=== PATIENT | female | born 1990 | race African-American/Black ===

== ENCOUNTER 2024-05-18 12:08 | Emergency (ER) | payer SELFPAY ==
[~2024-05-18] VITALS: Ht 162.6 cm; Wt 100.0 kg
[2024-05-18 12:44] LABS: CHLORIDE 113 mEq/L (98-107); POTASSIUM 3.6 mEq/L (3.5-5.1); SODIUM 141 mEq/L (136-145)
[2024-05-18 12:45] LABS: CALCIUM 8.7 mg/dL (8.7-10.4); CARBON DIOXIDE 24 mEq/L (21-32)
[2024-05-18] MEDS: LORAZEPAM 2MG/ML INJ IM STA (12:45)
[2024-05-18] MEDS: HALOPERIDOL LACTATE 5MG/ML VIAL IM STA (12:45)
[2024-05-18] MEDS: DIPHENHYDRAMINE 50MG/ML VIAL IM STA (12:45)
[2024-05-18 12:50] LABS: CREATININE 0.7 mg/dL (0.6-1.0); GLUCOSE 87 mg/dL (70-105); UREA NITROGEN BLOOD 9 mg/dL (9-23)
[2024-05-18 12:52] LABS: ACETAMINOPHEN < 2 ug/mL (10-30)
[2024-05-18 12:53] LABS: BASOPHILS % 0.8 % (0.0-2.0); HEMATOCRIT. 34.9 % (36.0-48.0); HEMOGLOBIN. 11.4 g/dL (12.0-16.0); LYMPHOCYTES % 39.2 % (20.0-50.0); MEAN CORPUSCULAR HGB CONC 32.6 g/dL (31.0-37.0); MEAN CORPUSCULAR VOLUME 91.8 fL (81.0-99.0); MEAN PLATELET VOLUME 8.7 fl (7.4-10.4); MONOCYTES % 6.3 % (2.0-8.0); NEUTROPHILS % 51.7 % (40.0-76.0); PLATELET 177 x1000/uL (130-400); RED CELL DISTRIBUTION WIDTH 13.9 % (11.6-14.6); WHITE BLOOD COUNT 4.8 x1000/uL (4.5-11.0)
[2024-05-18 12:59] LABS: ETHANOL BLOOD < 10 mg/dL (<10)
[2024-05-18 13:00] VITALS: O2SAT 100
[2024-05-18 16:30] LABS: HCG SCREEN NEGATIVE
[2024-05-18 19:04] VITALS: TEMP 37.05852
[2024-05-18 20:57] VITALS: BP 139/90; PULSE 96; RESP 20; O2SAT 97
== END 2024-05-19 08:15 | disposition left against medical advice (07) ==
LOC: ER 12:17
DX: R46.2 Strange and inexplicable behavior (principal); R45.1 Restlessness and agitation
CPT/HCPCS: 80048; 80307; 80329; 80320; 84703; 85025; 36415; 96372; 99291; J1200; J1630; J2060; G0480